=== PATIENT | male | born 1945 | race Hispanic/Latino ===

== ENCOUNTER 2023-09-23 12:05 | Inpatient (IN) | payer OTHER ==
[~2023-09-23 12:05] MED LIST: Iopamidol-370 76% 500 ML MDV (1 ML CHARGE) ONE
[2023-09-23] MEDS ORDERED: Ondansetron PF 4 MG/2 ML Vial ONE (12:49)
[2023-09-23 13:41] LABS: #Basophils Less than 0.03 10x3/uL (0.0-0.2); #Eosinphils Less than 0.03 10x3/uL (0.0-0.7); %Basophils 0.1 % (0.0-1.0); %Eosinophils 0.1 % (0.0-10.0); %Lymphocytes 10.6 % (21.0-51.0); %Monocytes 8.9 % (0.0-10.0); %Neutrophils 79.8 % (42.0-75.0); Hematocrit 29.1 % (42.0-52.0); Hemoglobin 9.8 g/dL (14.0-18.0); Mean Corpuscular HGB CONC 33.7 g/dL (32.0-36.0); Mean Corpuscular Hemoglobin 30.9 pg (27.0-31.0); Mean Corpuscular Volume 91.8 fL (78.0-98.0); Mean Platelet Volume 9.5 fL (7.4-10.4); Platelet Count 441 10x3/uL (130-400); RBC Distribution Width 12.6 % (11.5-14.5); Red Blood Cell (RBC) Count 3.17 mill/uL (4.70-6.10)
[2023-09-23 13:43] LABS: Lipase 7 U/L (8-78); Phosphorus 2.7 mg/dL (2.3-4.7)
[2023-09-23 13:47] LABS: Acetaminophen Less than 10 mcg/mL (10.0-30.0); Alcohol Less than 10.0 mg/dL (Less than 10); Salicylate Less than 8.0 mg/dL (15.0-30.0)
[2023-09-23 13:51] LABS: Troponin I 0.021 ng/mL (< 0.028)
[2023-09-23 13:54] LABS: ALT (SGPT) 6 U/L (8-55); AST (SGOT) 9 U/L (5-34); Albumin 2.1 g/dL (3.4-4.8); Alkaline Phosphatase 89 U/L (40-110); Anion Gap 18 mmol/L (10-20); BUN (Urea Nitrogen) 54 mg/dL (8.4-25.7); Bilirubin, Total 0.3 mg/dL (0.2-1.2); Calc. Creatinine Clearance 0 mL/min (70-130); Calcium 8.4 mg/dL (7.8-10.44); Carbon Dioxide 18 mmol/L (23-31); Chloride 93 mmol/L (98-107); Estimated GFR 31; Globulin 4.3 g/dL (2.4-3.5); Glucose 524 mg/dL (83-110); Magnesium 2.1 mg/dL (1.6-2.6); Potassium 4.8 mmol/L (3.5-5.1); Protein, Total 6.4 g/dL (5.8-8.1); Sodium 124 mmol/L (136-145)
[2023-09-23] MEDS ORDERED: Cefepime 2 GM VIAL ONE (14:34)
[2023-09-23] MEDS ORDERED: Sodium Chloride 0.9% 100 ML ONE (14:34)
[2023-09-23] MEDS ORDERED: Sodium Chloride 0.9% 1,000 ML IV PRN ×4 (15:08)
[2023-09-23] MEDS ORDERED: Dextrose 5 %-0.45 % NaCl 1,000 ML IV PRN (15:08)
[2023-09-23] MEDS ORDERED: Ondansetron PF 4 MG/2 ML Vial IVP PRN (15:08)
[2023-09-23] MEDS ORDERED: NS 0.9% w/ 20 MEQ KCL 1,000 ML IV PRN (15:08)
[2023-09-23] MEDS ORDERED: Ondansetron ODT 4 MG TAB PO PRN (15:08)
[2023-09-23] MEDS ORDERED: Acetaminophen 325 MG TAB PO PRN (15:08)
[2023-09-23] MEDS ORDERED: Electrolyte Replacement Protocol 1 EACH IVPB SCH (15:08)
[2023-09-23] MEDS ORDERED: Dextrose 50% Abboject 50 ML SYRINGE SLOW IVP PRN (15:08)
[2023-09-23] MEDS ORDERED: Vancomycin 1 GM/200 ML (FROZEN) BAG ONE (15:12)
[2023-09-23] MEDS ORDERED: NS 0.9% w/ 20 MEQ KCL 1,000 ML ONE (15:12)
[2023-09-23] MEDS ORDERED: INSULIN REGULAR IN 0.9 % NACL 100 UNITS/100 ML BAG ONE (15:12)
[2023-09-23] MEDS ORDERED: Insulin Reg, Human 100 UNITS in Sodium Chloride 0.9% 100 ML IVPB SCH (15:15)
[2023-09-23] MEDS ORDERED: INSULIN REGULAR IN 0.9 % NACL 100 UNITS in Premix 1 BAG IVPB SCH (15:30)
[2023-09-23 15:50] LABS: Bacteria/HPF None Seen HPF (None Seen); Bilirubin Negative (Negative); Blood, Urine Negative (Negative); CAUTI Indications for Culture Alt mental st,lethar; Clarity Clear (Clear); Glucose, Urine (Dipstick) Greater than 1000 mg/dL (Negative); Ketone, Urine 60 mg/dL (Negative); Leukocyte Negative Leu/uL (Negative); Nitrite Negative (Negative); Protein, Urine (Dipstick) 20 mg/dL (Neg-Trace); RBC/HPF 0-3 HPF (0-3); Specific Gravity, Urine 1.021 (1.002-1.036); Squamous Epithelial None Seen HPF (0-3); Urobilinogen Normal mg/dL (Less than 2)
[2023-09-23 15:51] LABS: Urine Culture Reflex No No
[2023-09-23 16:04] LABS: Amphetamine Not Detected (NotDetected); Barbiturates Screen Not Detected (NotDetected); Benzodiazepine Screen Not Detected (NotDetected); Cocaine Metabolite Screen Not Detected (NotDetected); Methadone Not Detected (NotDetected); Methamphetamine Not Detected (NotDetected); Opiate Screen Not Detected (NotDetected); Oxycodone Screen Not Detected (NotDetected); Phencyclidine (PCP) Not Detected (NotDetected); THC/Cannabinoid Screen Not Detected (NotDetected); Tricyclic Screen Not Detected (NotDetected)
[2023-09-23 16:59] VITALS: BMI 19.8
[2023-09-23 18:08] LABS: INR-International Normal Ratio 1.1; Prothrombin Time 14.6 sec (12.0-14.7)
[2023-09-23 18:09] LABS: PTT 30.2 sec (22.9-36.1)
[2023-09-23] MEDS: NS 0.9% w/ 20 MEQ KCL 1,000 ML IV PRN (18:26)
[2023-09-23 18:32] LABS: Anion Gap 15 mmol/L (10-20); BUN (Urea Nitrogen) 46 mg/dL (8.4-25.7); Calc. Creatinine Clearance 31 mL/min (70-130); Calcium 7.7 mg/dL (7.8-10.44); Carbon Dioxide 14 mmol/L (23-31); Chloride 104 mmol/L (98-107); Estimated GFR 43; Glucose 334 mg/dL (83-110); Potassium 4.1 mmol/L (3.5-5.1); Sodium 129 mmol/L (136-145)
[2023-09-23] MEDS: D5 1/2 NS w/20 mEq KCL 1,000 ML IV PRN (20:06)
[2023-09-23] MEDS: Famotidine/PF 20 mg/2ml Vial SLOW IVP SCH (20:07)
[2023-09-23 20:11] LABS: Anion Gap 13 mmol/L (10-20); BUN (Urea Nitrogen) 46 mg/dL (8.4-25.7); Calc. Creatinine Clearance 29 mL/min (70-130); Calcium 7.8 mg/dL (7.8-10.44); Carbon Dioxide 15 mmol/L (23-31); Chloride 105 mmol/L (98-107); Estimated GFR 40; Glucose 254 mg/dL (83-110); Potassium 4.1 mmol/L (3.5-5.1); Sodium 129 mmol/L (136-145)
[2023-09-23] MEDS: Heparin 5,000 UNITS/ML VIAL SC SCH (20:14)
[2023-09-23 20:18] LABS: Troponin I 0.023 ng/mL (< 0.028)
[2023-09-24 00:23] LABS: Anion Gap 9 mmol/L (10-20); BUN (Urea Nitrogen) 40 mg/dL (8.4-25.7); Calc. Creatinine Clearance 35 mL/min (70-130); Calcium 7.7 mg/dL (7.8-10.44); Carbon Dioxide 19 mmol/L (23-31); Chloride 107 mmol/L (98-107); Estimated GFR 50; Glucose 154 mg/dL (83-110); Potassium 4.1 mmol/L (3.5-5.1); Sodium 131 mmol/L (136-145)
[2023-09-24 05:28] LABS: #Basophils Less than 0.03 10x3/uL (0.0-0.2); %Basophils 0.1 % (0.0-1.0); %Eosinophils 0.5 % (0.0-10.0); %Lymphocytes 6.2 % (21.0-51.0); %Monocytes 5.3 % (0.0-10.0); %Neutrophils 87.4 % (42.0-75.0); Hematocrit 29.2 % (42.0-52.0); Hemoglobin 10.1 g/dL (14.0-18.0); Mean Corpuscular HGB CONC 34.6 g/dL (32.0-36.0); Mean Corpuscular Hemoglobin 30.5 pg (27.0-31.0); Mean Corpuscular Volume 88.2 fL (78.0-98.0); Mean Platelet Volume 9.6 fL (7.4-10.4); Platelet Count 349 10x3/uL (130-400); RBC Distribution Width 12.8 % (11.5-14.5); Red Blood Cell (RBC) Count 3.31 mill/uL (4.70-6.10)
[2023-09-24 06:47] LABS: Anion Gap 10 mmol/L (10-20); BUN (Urea Nitrogen) 34 mg/dL (8.4-25.7); Calc. Creatinine Clearance 40 mL/min (70-130); Calcium 7.5 mg/dL (7.8-10.44); Carbon Dioxide 20 mmol/L (23-31); Chloride 107 mmol/L (98-107); Estimated GFR 58; Glucose 199 mg/dL (83-110); Potassium 4.5 mmol/L (3.5-5.1); Sodium 132 mmol/L (136-145)
[2023-09-24] MEDS ORDERED: HumaLOG 300 UNITS/3 ML VIAL SC PRN (12:25)
[2023-09-24] MEDS ORDERED: Glucagon 1 MG/ML KIT IM PRN (12:25)
[2023-09-24] MEDS ORDERED: Dextrose 5% in Water 1,000 ML IV PRN (12:25)
[2023-09-24] MEDS: Sodium Chloride 0.9% 1,000 ML IV SCH (12:47)
[2023-09-24] MEDS: Insulin Glargine 30 UNITS/0.3 ML VIAL SC SCH ×2 (12:47→21:24)
[2023-09-24] MEDS: Insulin Lispro 100 UNIT/ML 10 ML VIAL SC PRN (16:42)
[2023-09-24] MEDS: Piperacillin/Tazobactam 3.375 GM in Sodium Chloride 0.9% 100 ML IVPB SCH ×2 (16:42→21:46)
[2023-09-25 06:16] LABS: Anion Gap 9 mmol/L (10-20); BUN (Urea Nitrogen) 16 mg/dL (8.4-25.7); Calc. Creatinine Clearance 60 mL/min (70-130); Calcium 7.9 mg/dL (7.8-10.44); Carbon Dioxide 21 mmol/L (23-31); Chloride 109 mmol/L (98-107); Estimated GFR 90; Glucose 63 mg/dL (83-110); Magnesium 1.7 mg/dL (1.6-2.6); Potassium 4.3 mmol/L (3.5-5.1); Sodium 135 mmol/L (136-145)
[2023-09-25] MEDS: Dextrose 50% Abboject 50 ML SYRINGE SLOW IVP PRN (06:49)
[2023-09-25 07:47] LABS: #Basophils 0.03 10x3/uL (0.0-0.2); %Basophils 0.2 % (0.0-1.0); %Eosinophils 0.7 % (0.0-10.0); %Lymphocytes 16.6 % (21.0-51.0); %Monocytes 7.4 % (0.0-10.0); Hematocrit 34.9 % (42.0-52.0); Hemoglobin 11.4 g/dL (14.0-18.0); Mean Corpuscular HGB CONC 32.7 g/dL (32.0-36.0); Mean Corpuscular Volume 94.8 fL (78.0-98.0); Mean Platelet Volume 9.7 fL (7.4-10.4); Platelet Count 343 10x3/uL (130-400); RBC Distribution Width 13.2 % (11.5-14.5); Red Blood Cell (RBC) Count 3.68 mill/uL (4.70-6.10)
[2023-09-25 07:57] LABS: Hemoglobin A1c 8.2 % (4.0-6.0)
[2023-09-25 08:21] LABS: Phosphorus 1.1 mg/dL (2.3-4.7)
[2023-09-25] MEDS: Potassium Phosphate 30 MMOL in Sodium Chloride 0.9% 250 ML 250 ML IVPB SCH (09:12)
[2023-09-25] MEDS: PHOS-NAK 1 PKT PACK PO SCH ×2 (09:13→11:41)
[2023-09-25] MEDS: Magnesium 2 GM/50 ML(in water) 2 GM in Premix 1 BAG IVPB SCH (09:13)
[2023-09-25] MEDS: Famotidine/PF 20 mg/2ml Vial SLOW IVP SCH (21:05)
[2023-09-26 04:12] LABS: #Basophils 0.03 10x3/uL (0.0-0.2); %Basophils 0.3 % (0.0-1.0); %Eosinophils 2.8 % (0.0-10.0); %Lymphocytes 14.4 % (21.0-51.0); %Monocytes 5.7 % (0.0-10.0); %Neutrophils 75.8 % (42.0-75.0); Hemoglobin 9.5 g/dL (14.0-18.0); Mean Corpuscular HGB CONC 32.8 g/dL (32.0-36.0); Mean Corpuscular Hemoglobin 30.5 pg (27.0-31.0); Mean Corpuscular Volume 93.2 fL (78.0-98.0); Mean Platelet Volume 9.5 fL (7.4-10.4); Platelet Count 293 10x3/uL (130-400); RBC Distribution Width 13.2 % (11.5-14.5); Red Blood Cell (RBC) Count 3.11 mill/uL (4.70-6.10)
[2023-09-26 04:40] LABS: Anion Gap 12 mmol/L (10-20); BUN (Urea Nitrogen) 13 mg/dL (8.4-25.7); Calc. Creatinine Clearance 60 mL/min (70-130); Calcium 7.4 mg/dL (7.8-10.44); Carbon Dioxide 21 mmol/L (23-31); Chloride 104 mmol/L (98-107); Estimated GFR 89; Glucose 217 mg/dL (83-110); Magnesium 1.9 mg/dL (1.6-2.6); Potassium 4.4 mmol/L (3.5-5.1); Sodium 133 mmol/L (136-145)
[2023-09-26] MEDS: Magnesium 2 GM/50 ML(in water) 2 GM in Premix 1 BAG IVPB SCH (09:43)
[2023-09-26] MEDS: Levothyroxine 150 MCG TAB PO SCH (09:56)
[2023-09-26] MEDS: Calcium Carbonate 600 MG TAB PO SCH (20:40)
[2023-09-27] MEDS ORDERED: Non-Formulary Item 1 EACH (Cetirizine Hcl [Zyrtec] 10 MG Capsule) PO SCH (09:00)
[2023-09-27] MEDS ORDERED: Non-Formulary Item 1 EACH (Omeprazole [Omeprazole] 20 MG Capsule.Dr) PO SCH (09:00)
[2023-09-27] MEDS: Loratadine 10 MG TAB PO SCH (09:13)
[2023-09-27] MEDS: Pantoprazole DR 40 MG TAB PO SCH (09:13)
[2023-09-27] MEDS: Aspirin Chewable 81 MG TAB PO SCH (09:13)
[2023-09-27 09:40] LABS: #Basophils 0.04 10x3/uL (0.0-0.2); %Basophils 0.4 % (0.0-1.0); %Eosinophils 5.6 % (0.0-10.0); %Monocytes 6.5 % (0.0-10.0); %Neutrophils 65.2 % (42.0-75.0); Hematocrit 34.8 % (42.0-52.0); Hemoglobin 11.3 g/dL (14.0-18.0); Mean Corpuscular HGB CONC 32.5 g/dL (32.0-36.0); Mean Corpuscular Hemoglobin 30.8 pg (27.0-31.0); Mean Corpuscular Volume 94.8 fL (78.0-98.0); Mean Platelet Volume 9.3 fL (7.4-10.4); Platelet Count 346 10x3/uL (130-400); RBC Distribution Width 13.2 % (11.5-14.5); Red Blood Cell (RBC) Count 3.67 mill/uL (4.70-6.10)
[2023-09-27 10:07] LABS: Anion Gap 9 mmol/L (10-20); BUN (Urea Nitrogen) 13 mg/dL (8.4-25.7); Calc. Creatinine Clearance 51 mL/min (70-130); Calcium 8.3 mg/dL (7.8-10.44); Carbon Dioxide 25 mmol/L (23-31); Chloride 103 mmol/L (98-107); Estimated GFR 75; Glucose 250 mg/dL (83-110); Potassium 4.2 mmol/L (3.5-5.1); Sodium 133 mmol/L (136-145)
[2023-09-27 15:10] LABS: Cardiac Risk 5.6 (Less than 4.5)
[2023-09-27] MEDS: Atorvastatin Calcium 40 MG TAB PO SCH (19:46)
[2023-09-27] MEDS: Insulin Glargine 30 UNITS/0.3 ML VIAL SC SCH (19:47)
[2023-09-27] MEDS ORDERED: Atorvastatin Calcium 40 MG TAB PO SCH (21:00)
[2023-09-28 07:00] LABS: #Basophils 0.04 10x3/uL (0.0-0.2); %Basophils 0.4 % (0.0-1.0); %Eosinophils 8.3 % (0.0-10.0); %Monocytes 7.6 % (0.0-10.0); %Neutrophils 62.5 % (42.0-75.0); Hematocrit 33.2 % (42.0-52.0); Mean Corpuscular HGB CONC 33.1 g/dL (32.0-36.0); Mean Corpuscular Hemoglobin 30.7 pg (27.0-31.0); Mean Corpuscular Volume 92.7 fL (78.0-98.0); Mean Platelet Volume 9.2 fL (7.4-10.4); Platelet Count 315 10x3/uL (130-400); Red Blood Cell (RBC) Count 3.58 mill/uL (4.70-6.10)
[2023-09-28 07:20] LABS: Anion Gap 8 mmol/L (10-20); BUN (Urea Nitrogen) 11 mg/dL (8.4-25.7); Calc. Creatinine Clearance 62 mL/min (70-130); Calcium 8.2 mg/dL (7.8-10.44); Carbon Dioxide 25 mmol/L (23-31); Chloride 102 mmol/L (98-107); Estimated GFR 90; Glucose 157 mg/dL (83-110); Potassium 3.9 mmol/L (3.5-5.1); Sodium 131 mmol/L (136-145)
[2023-09-28] MEDS: Aspirin 325 MG TAB PO SCH (08:25)
[2023-09-28] MEDS ORDERED: Aspirin 325 MG TAB PO SCH (09:00)
[2023-09-28] MEDS: Famotidine 20 MG TAB PO SCH (20:28)
[2023-09-29 04:13] LABS: #Basophils 0.03 10x3/uL (0.0-0.2); %Basophils 0.2 % (0.0-1.0); %Eosinophils 8.9 % (0.0-10.0); %Lymphocytes 22.8 % (21.0-51.0); %Monocytes 9.3 % (0.0-10.0); %Neutrophils 56.9 % (42.0-75.0); Hematocrit 30.7 % (42.0-52.0); Hemoglobin 10.3 g/dL (14.0-18.0); Mean Corpuscular HGB CONC 33.6 g/dL (32.0-36.0); Mean Corpuscular Hemoglobin 31.1 pg (27.0-31.0); Mean Corpuscular Volume 92.7 fL (78.0-98.0); Mean Platelet Volume 9.2 fL (7.4-10.4); Platelet Count 329 10x3/uL (130-400); RBC Distribution Width 13.1 % (11.5-14.5); Red Blood Cell (RBC) Count 3.31 mill/uL (4.70-6.10)
[2023-09-29 04:31] LABS: Anion Gap 7 mmol/L (10-20); BUN (Urea Nitrogen) 14 mg/dL (8.4-25.7); Calc. Creatinine Clearance 62 mL/min (70-130); Calcium 7.9 mg/dL (7.8-10.44); Carbon Dioxide 27 mmol/L (23-31); Chloride 101 mmol/L (98-107); Estimated GFR 90; Glucose 183 mg/dL (83-110); Magnesium 1.9 mg/dL (1.6-2.6); Potassium 4.3 mmol/L (3.5-5.1); Sodium 131 mmol/L (136-145)
[2023-09-29 04:36] LABS: Troponin I 0.036 ng/mL (< 0.028)
[2023-09-29] MEDS: Magnesium 2 GM/50 ML(in water) 2 GM in Premix 1 BAG IVPB SCH (09:06)
[2023-09-29] MEDS ORDERED: HumaLOG 300 UNITS/3 ML VIAL SC PRN (10:19)
[2023-09-29] MEDS ORDERED: Clopidogrel Bisulfate 75 MG TAB PO SCH (10:30)
[2023-09-29] MEDS ORDERED: Insulin Lispro 100 UNIT/ML 10 ML VIAL SC PRN (10:30)
[2023-09-29 11:48] LABS: Syphilis Antibody Nonreactive (Nonreactive); Syphilis Antibody Index 0.08 S/CO (<1.00 Non-Reactive)
[2023-09-29] MEDS ORDERED: Atorvastatin Calcium 20 MG TAB PO SCH (21:00)
[2023-09-29] MEDS: Atorvastatin Calcium 40 MG TAB PO SCH (21:08)
[2023-09-30] MEDS: Clopidogrel Bisulfate 75 MG TAB PO SCH (09:13)
[2023-09-30] MEDS: Aspirin 81 mg Enteric Coated Tablet PO SCH (09:13)
[2023-09-30] MEDS: Insulin Glargine 30 UNITS/0.3 ML VIAL SC SCH (09:14)
[2023-09-30 10:52] LABS: HIV (1/2) Antibody/Antigen NONREACTIVE (NonReactive); HIV 1/2 INDEX 0.04 S/CO (<1.00)
[2023-09-30 13:42] LABS: #Basophils 0.04 10x3/uL (0.0-0.2); %Basophils 0.4 % (0.0-1.0); %Eosinophils 7.8 % (0.0-10.0); %Lymphocytes 22.1 % (21.0-51.0); %Monocytes 10.8 % (0.0-10.0); %Neutrophils 57.1 % (42.0-75.0); Hematocrit 32.1 % (42.0-52.0); Hemoglobin 10.5 g/dL (14.0-18.0); Mean Corpuscular HGB CONC 32.7 g/dL (32.0-36.0); Mean Corpuscular Hemoglobin 30.8 pg (27.0-31.0); Mean Corpuscular Volume 94.1 fL (78.0-98.0); Mean Platelet Volume 9.1 fL (7.4-10.4); Platelet Count 361 10x3/uL (130-400); RBC Distribution Width 13.4 % (11.5-14.5); Red Blood Cell (RBC) Count 3.41 mill/uL (4.70-6.10)
[2023-09-30 14:27] LABS: Anion Gap 9 mmol/L (10-20); BUN (Urea Nitrogen) 18 mg/dL (8.4-25.7); Calc. Creatinine Clearance 50 mL/min (70-130); Calcium 8.7 mg/dL (7.8-10.44); Carbon Dioxide 26 mmol/L (23-31); Chloride 102 mmol/L (98-107); Estimated GFR 79; Glucose 251 mg/dL (83-110); Potassium 4.9 mmol/L (3.5-5.1); Sodium 132 mmol/L (136-145)
[2023-09-30 16:25] VITALS: BP 96/58; TEMP 98.2
[2023-09-30 17:59] VITALS: BMI 19.2
== END 2023-09-30 22:44 | disposition home or self-care (01) | DRG 64 ==
LOC: ERS 12:05 → IMCU/EMU 16:51 → EEVIPCON 16:51 → T4-B 09-25 16:28 → 2SE 09-28 15:54
PROVIDERS: ADMIT Hospitalist; ATTEND Internal Medicine
DX: I63.9 Cerebral infarction, unspecified (principal); E11.10 Type 2 diabetes mellitus with ketoacidosis without coma; I21.A1 Myocardial infarction type 2; G93.49 Other encephalopathy; E87.1 Hypo-osmolality and hyponatremia; J84.9 Interstitial pulmonary disease, unspecified; E44.0 Moderate protein-calorie malnutrition; Z68.1 Body mass index [BMI] 19.9 or less, adult; E83.42 Hypomagnesemia; E83.39 Other disorders of phosphorus metabolism; E11.22 Type 2 diabetes mellitus with diabetic chronic kidney disease; I12.9 Hypertensive chronic kidney disease with stage 1 through stage 4 chronic kidney disease, or unspecified chronic kidney disease; N18.2 Chronic kidney disease, stage 2 (mild); E86.0 Dehydration; D63.8 Anemia in other chronic diseases classified elsewhere; D72.829 Elevated white blood cell count, unspecified; D53.9 Nutritional anemia, unspecified; E78.5 Hyperlipidemia, unspecified
CPT/HCPCS: 36415; 36416; 51702; 70450; 70551; 71045; 71260; 74177; 80048; 80053; 80061; 80306; 80307; 82010; 82140; 83036; 83605; 83690; 83735; 84100; 84484; 85025; 85610; 85730; 86780; 87040; 87149; 87324; 87389; 87449; 93005; 93306; 93880; 96374; 96375; J0692; J1644; J1815; J2405; J2543; J3370-JW; J3475; J3480; J3490; J7050; J7999; Q9967; S0028